=== PATIENT | female | born 1930 | race Caucasian/White ===

== ENCOUNTER → 2019-05-29 | Outpatient (CLI) | payer OTHER, BC ==
[~2019-05-29] VITALS: Ht 157.5 cm; Wt 54.4 kg
[~2019-05-29] MED LIST: AMLODIPINE BESY10 MG PO; ASPIR 8181 MG PO; CALCIUM 600 +1 EAC1 PO; CENTRUM SILVER1 EAC5 PO; FOLIC ACID1 MG PO; HYDROXYCHLOROQ200 M1 PO; LASIX 20 MG TAB20 MG PO; LIPITOR 20 MG T20 M1 PO; LOPRESSOR50 PO; NAMENDA 10 MG T10 MG PO; PACERONE 200 M200 M1 PO; PLAVIX 75 MG TA75 M1 PO; SPIRONOLACTONE25 M1 PO; SULFAZINE500 MG PO; SYNTHROID75 MCG PO; VENTOLIN HFA 1818 GM INH
[2019-05-29 08:15] VITALS: BP 139/64
== END | disposition home or self-care (01) ==
LOC: SPEC 07:25
DX: I70.248 Atherosclerosis of native arteries of left leg with ulceration of other part of lower leg (principal); L97.829 Non-pressure chronic ulcer of other part of left lower leg with unspecified severity; I70.1 Atherosclerosis of renal artery; I10 Essential (primary) hypertension; E78.5 Hyperlipidemia, unspecified; I42.9 Cardiomyopathy, unspecified; K21.9 Gastro-esophageal reflux disease without esophagitis; Z95.0 Presence of cardiac pacemaker; N19 Unspecified kidney failure; M19.90 Unspecified osteoarthritis, unspecified site; M10.9 Gout, unspecified; I25.10 Atherosclerotic heart disease of native coronary artery without angina pectoris; Z98.890 Other specified postprocedural states; Z88.8 Allergy status to other drugs, medicaments and biological substances; Z79.899 Other long term (current) drug therapy; Z79.82 Long term (current) use of aspirin

== ENCOUNTER → 2020-01-09 | Outpatient (CLI) | payer OTHER, BC ==
[~2020-01-09] MED LIST changes: +PRESERVISION T1 EACH PO
== END ==
LOC: SJCVCIMAG 09:41
DX: I70.202 Unspecified atherosclerosis of native arteries of extremities, left leg (principal); I25.10 Atherosclerotic heart disease of native coronary artery without angina pectoris; I48.91 Unspecified atrial fibrillation; N18.9 Chronic kidney disease, unspecified; E78.00 Pure hypercholesterolemia, unspecified; M06.9 Rheumatoid arthritis, unspecified; Z95.0 Presence of cardiac pacemaker; Z90.49 Acquired absence of other specified parts of digestive tract; Z79.899 Other long term (current) drug therapy

== ENCOUNTER → 2020-01-12 | Outpatient (CLI) | payer OTHER, BC ==
[~2020-01-12] VITALS: Ht 157.5 cm; Wt 50.8 kg
[2020-01-12 11:55] VITALS: BP 151/58
[2020-01-12 12:08] LABS: HEMATOCRIT 30.7 % (37.0-47.0); HEMOGLOBIN 9.5 gm/dL (12.0-15.0); MCH 25.7 pg (26.0-34.0); MCHC 30.9 g/dL (28.0-37.0); MCV 83.4 fL (80.0-100.0); RBC 3.68 mil/uL (4.20-5.00); RDW 18.2 % (10.5-14.5); WBC 6.6 thou/uL (4.0-11.0)
[2020-01-12 12:12] LABS: CALCIUM 10.2 mg/dL (8.5-10.1); CREATININE 1.4 mg/dL (0.6-1.0); POTASSIUM 4.1 mmol/L (3.5-5.1)
== END | disposition home or self-care (01) ==
LOC: CATH 11:09
PROVIDERS: Nuclear Medicine Nuclear Cardiology
DX: I70.212 Atherosclerosis of native arteries of extremities with intermittent claudication, left leg (principal); I70.1 Atherosclerosis of renal artery; M86.172 Other acute osteomyelitis, left ankle and foot; I10 Essential (primary) hypertension; I25.10 Atherosclerotic heart disease of native coronary artery without angina pectoris; M19.90 Unspecified osteoarthritis, unspecified site; M60.9 Myositis, unspecified; N19 Unspecified kidney failure; Z98.890 Other specified postprocedural states; Z79.899 Other long term (current) drug therapy; Z88.8 Allergy status to other drugs, medicaments and biological substances; Z79.82 Long term (current) use of aspirin